=== PATIENT | male | born 1985 | race Caucasian/White ===

== ENCOUNTER 2016-02-26 09:27 | Emergency (ER) | payer SELFPAY ==
[~2016-02-26] VITALS: Ht 185.4 cm; Wt 145.1 kg
[~2016-02-26 09:27] MED LIST: FLUT9.9S NS
[2016-02-26 09:30] VITALS: BP 142/86
--- NOTE | 2016-02-26 09:49 | PHYS DOC ---
Past Medical History Past Medical History: Other Additional Past Medical Histor: mild head injury(2012), vertigo Past Surgical History: Tonsillectomy Alcohol Use: Rarely Drug Use: None Adult General Chief Complaint Chief Complaint: NECK INJURY HPI HPI Patient is a 30 year old male walks into the emergency room today with complaint of headache and neck/upper back pain since 4 PM yesterday. 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 He reported that the load shifted causing the Bobcat to be darian resulting in him becoming unseated and striking the top of his head to the roof of the Bobcat. He states that he was dazed but denies loss of consciousness. He states he was not wearing a hardhat. Patient states that he is now had a persistent headache with neck and upper back pain that extends between his shoulder blades. He denies any previous skull fractures, brain bleeds or concussions. He denies any history of spinal cord or spinal column injuries. He reports he does have a calcified disc T7. He denies any focal areas of numbness or tingling/altered sensations. States that he does have chronic tinnitus which has not worsened. Review of Systems Review of Systems Constitutional: Denies fever or chills [] Eyes: Denies change in visual acuity, redness, or eye pain [] HENT: Denies nasal congestion or sore throat [] Respiratory: Denies cough or shortness of breath [] Cardiovascular: No additional information not addressed in HPI [] GI: Denies abdominal pain, nausea, vomiting, bloody stools or diarrhea [] : Denies dysuria or hematuria [] Musculoskeletal: Denies back pain or joint pain [] Integument: Denies rash or skin lesions [] Neurologic: Denies headache, focal weakness or sensory changes [] Endocrine: Denies polyuria or polydipsia [] Allergies Allergies Allergies Coded Allergies Type Severity Reaction Last Updated Verified Penicillins Allergy Severe Anaphylaxis 03/10/15 Yes Sulfa (Sulfonamide Antibiotics) Allergy Severe Anaphylaxis 03/10/15 Yes morphine Allergy Intermediate Rash 03/10/15 Yes Physical Exam Physical Exam Constitutional: Well developed, well nourished, no acute distress, non-toxic appearance. HENT: Normocephalic, atraumatic, bilateral external ears normal, oropharynx moist, no oral exudates, nose normal. Eyes: PERRLA, EOMI, conjunctiva normal, no discharge. [] Neck: Normal range of motion, no tenderness, supple, no stridor. There is kenyon tenderness to palpation through the patient's posterior neck to the area between his shoulder blades. There is no palpable defect, deformity, instability or crepitus. There is no active muscle spasm. Cardiovascular:Heart rate regular rhythm, no murmur [] Lungs & Thorax: Bilateral breath sounds clear to auscultation [] Abdomen: Bowel sounds normal, soft, no tenderness, no masses, no pulsatile masses. [] Skin: Warm, dry, no erythema, no rash. [] Back: No tenderness, no CVA tenderness. [] Extremities: No tenderness, no cyanosis, no clubbing, ROM intact, no edema. [] Neurologic: Alert and oriented X 3, normal motor function, normal sensory function, no focal deficits noted. Patient ambulates with a steady, unaided gait. Psychologic: Affect normal, judgement normal, mood normal. [] Current Patient Data Vital Signs Vital Signs Date Time Temp Pulse Resp B/P Pulse Ox O2 Delivery O2 Flow Rate FiO2 02/26/16 09:30 98.3 82 20 97 Room Air 98.3 EKG EKG [] Radiology/Procedures Radiology/Procedures Noncontrast CT scan of patient's head, cervical spine and thoracic spine show no evidence of acute intracranial injury, spinal column fracture or misalignment. Course & Med Decision Making Course & Med Decision Making Pertinent Labs and Imaging studies reviewed. (See chart for details) [] Dragon Disclaimer Dragon Disclaimer This electronic medical record was generated, in whole or in part, using a voice recognition dictation system. Departure Departure Impression: Primary Impression: Closed head injury Additional Impressions: Cervical strain, acute Thoracic myofascial strain Disposition: 01 HOME, SELF-CARE Condition: GOOD Referrals: NO PCP (PCP) Patient Instructions: Head Injury, Adult, [id number], Soft Tissue Injury of the Neck, [id number], Thoracic Strain, [id number] Additional Instructions: 1. The CT scan of your head, neck and upper back today show no evidence of broken bones or malalignment. There is no evidence of bleeding or skull fracture. 2. Review the discharge instructions provided for self care and reasons to return to the emergency department. 3. Take the medication as prescribed. 4. Follow-up with a primary care doctor within the next 5-7 days. Scripts Orphenadrine Citrate 100 Mg Tablet.er100 Mg PO every 12 hours #14 Prov:PROSPER SANCHEZ 02/26/16 Naproxen Sodium (Anaprox Ds)550 Mg [id number] Mg PO every 12 hours PAIN #20 Prov:PROSPER SANCHEZ 02/26/16 Problem Qualifiers PROSPER SANCHEZ Feb 26, 2016 09:49
--- NOTE | 2016-02-26 11:03 | RAD ---
Indication injury, pain. The head and cervical spine were evaluated. Images of the cervical spine were reformatted in the coronal and sagittal planes. No prior imaging is available. CT head: Findings No acute calvarial finding is seen. The visualized paranasal sinuses appear normal. There is no subdural or epidural hematoma. No mass or midline shift is seen. There is no evidence of hemorrhage. Acute intracranial finding is not seen. CT cervical spine: Findings. The lung apices are clear. A significant soft tissue finding in the neck is not seen. Review of axial images is unremarkable apart from some slight degenerative change. No fracture is seen. The reformatted images also appear unremarkable with regards to any acute or significant bony finding. IMPRESSION: No acute finding in the cervical spine. No acute intracranial finding is seen PQRS Compliance Statement: One or more of the following individualized dose reduction techniques were utilized for this examination: 1. Automated exposure control 2. Adjustment of the mA and/or kV according to patient size 3. Use of iterative reconstruction technique
--- NOTE | 2016-02-26 11:08 | RAD ---
Indication injury, pain. The thoracic spine was evaluated. Axial images were obtained and reformatted in the coronal and sagittal planes. The visualized lung bolaños are unremarkable. The visualized mediastinum appears unremarkable. The soft tissues in the visualized upper abdomen are unremarkable. The axial images appear unremarkable. No fracture or bony abnormality is seen. The reformatted images in the coronal and sagittal planes also appear normal. IMPRESSION: Normal CT of the thoracic spine PQRS Compliance Statement: One or more of the following individualized dose reduction techniques were utilized for this examination: 1. Automated exposure control 2. Adjustment of the mA and/or kV according to patient size 3. Use of iterative reconstruction technique
[2016-02-26] MEDS ORDERED: ORPH100T PO (11:22)
[2016-02-26] MEDS ORDERED: NAPR550T PO (11:22)
== END 2016-02-26 11:40 | disposition home or self-care (01) ==
LOC: ER 09:30
DX: S16.1XXA Strain of muscle, fascia and tendon at neck level, initial encounter (principal); S29.012A Strain of muscle and tendon of back wall of thorax, initial encounter; S09.90XA Unspecified injury of head, initial encounter; Z88.5 Allergy status to narcotic agent; Z88.2 Allergy status to sulfonamides; Z88.0 Allergy status to penicillin; W22.8XXA Striking against or struck by other objects, initial encounter; Y93.89 Activity, other specified; Y92.89 Other specified places as the place of occurrence of the external cause; Y99.8 Other external cause status
CPT/HCPCS: 70450; 72125; 72128; 99284-25